=== PATIENT | female | born 1960 | race Caucasian/White ===

== ENCOUNTER → 2017-10-10 | Outpatient (CLI) | payer BC ==
[~2017-10-10] MED LIST: ASCORBIC ACID500 M3 PO; AZO CRANBERRY1 EACH PO; CALCIUM 500 +1 EAC4 PO; ERGOCALCIF50000 UNIT PO; IRON SUPPLEMEN325 MG PO; KEFLEX250 MG PO; LEXAPRO10 MG PO; LEXAPRO20 MG PO; MULTI-DAY VITA1 EACH PO; PHENTERMINE HCL30 MG PO; VESICARE10 MG PO; ZYRTEC10 M3 PO
== END | disposition home or self-care (01) ==
LOC: CDC 08:37
DX: Z01.810 Encounter for preprocedural cardiovascular examination (principal); R94.31 Abnormal electrocardiogram [ECG] [EKG]
CPT/HCPCS: 93000

== ENCOUNTER 2017-10-28 05:23 | Day surgery (SDC) | payer BC ==
[~2017-10-28] VITALS: Ht 157.5 cm; Wt 107.5 kg
[2017-10-28 06:55] VITALS: BP 117/64
[2017-10-28 09:21] VITALS: BP 132/65
[2017-10-28 10:22] VITALS: BP 132/75
== END 2017-10-28 10:25 | disposition home or self-care (01) ==
LOC: SDC 05:23
PROC: 0UBMXZX Excision of Vulva, External Approach, Diagnostic (ICD-10-PCS; principal; 2017-10-28)
DX: D28.0 Benign neoplasm of vulva (principal); E03.9 Hypothyroidism, unspecified; E66.01 Morbid (severe) obesity due to excess calories; Z68.41 Body mass index [BMI] 40.0-44.9, adult; F39 Unspecified mood [affective] disorder; N32.81 Overactive bladder; E55.9 Vitamin D deficiency, unspecified; Z90.711 Acquired absence of uterus with remaining cervical stump; Z90.79 Acquired absence of other genital organ(s); Z90.721 Acquired absence of ovaries, unilateral; Z98.84 Bariatric surgery status; Z87.19 Personal history of other diseases of the digestive system; Z82.49 Family history of ischemic heart disease and other diseases of the circulatory system; Z80.0 Family history of malignant neoplasm of digestive organs; Z83.49 Family history of other endocrine, nutritional and metabolic diseases; Z83.3 Family history of diabetes mellitus; Z80.3 Family history of malignant neoplasm of breast; Z88.5 Allergy status to narcotic agent
CPT/HCPCS: 87070; 87075; 87205; 88305; J0690; J1885; J2250; J2405; J3010